=== PATIENT | female | born 1995 | race Caucasian/White ===

== ENCOUNTER 2016-11-02 11:57 | Day surgery (SDC) | payer OTHER ==
[~2016-11-02] VITALS: Ht 167.6 cm; Wt 77.1 kg
[2016-11-02] MEDS ORDERED: NITR100C37 PO (12:15)
[2016-11-02] MEDS ORDERED: FLOM5CAP PO (12:15)
[2016-11-02] MEDS ORDERED: PERCOCET PO (12:15)
[2016-11-02] MEDS ORDERED: KETOROLAC 30 MG/ML VIAL (J1885) IV ONE (13:00)
[2016-11-02] MEDS ORDERED: NS 1,000 ML IV ONE (13:00)
[2016-11-02] MEDS ORDERED: ONDANSETRON 4MG/2ML VIAL (J2405) IV ONE (13:00)
[2016-11-02 13:21] LABS: BASO % 0.7 % (0.0-1.0); EOS # 0.5 K/mm3 (0.0-0.50); EOS % 7.8 % (0.0-3.0); LARGE UNSTAINED CELL # 0.1 K/mm3 (0.0-0.4); LARGE UNSTAINED CELL % 1.2 % (0.0-4.0); LYMPH # 1.4 K/mm3 (1.5-6.5); LYMPH % 19.1 % (24.0-44.0); MEAN CORPUSCULAR HEMOGLOBIN 28.8 pg (27.0-33.0); MEAN CORPUSCULAR HGB CONC 33.8 g/dl (32.0-36.5); MEAN CORPUSCULAR VOLUME 85.1 fl (80.0-96.0); MONO # 0.4 K/mm3 (0.0-0.8); MONO % 5.7 % (0.0-5.0); NEUTROPHILS # 4.4 K/mm3 (1.8-7.7); NEUTROPHILS % 65.5 % (36.0-66.0); PLATELET COUNT, AUTOMATED 288 k/mm3 (150-450); RED CELL DISTRIBUTION WIDTH 12.9 % (11.5-14.5); WHITE BLOOD COUNT 6.7 K/mm3 (4.0-10.0)
--- NOTE | 2016-11-02 13:52 | REP ---
Clinical: Left flank pain. Findings: Mild left-sided obstructive uropathy with edematous enlargement of the kidney and hydroureteronephrosis secondary to a 7 mm obstructing calculus at the ureterovesicle junction (images 126 - 127). The urinary tract system is otherwise unremarkable. Liver, spleen, pancreas, and bilateral adrenal glands are normal. The patient is status post cholecystectomy. The enteric system is unremarkable. Pelvis demonstrates collapsed bladder and age-appropriate uterus/adnexa. No free air. No free fluid. No obvious adenopathy. Abdominal aorta without aneurysm. Surrounding musculoskeletal structures are intact. Lung bases are clear. Impression: 1. Mild left-sided obstructive uropathy with a 7 mm calculus at the ureterovesicle junction. Otherwise normal urinary tract system. Signed by Richard Cormier MD 11/02/2016 01:43 P
[2016-11-02 14:14] LABS: ANION GAP 5 MEQ/L (8-16); BLOOD UREA NITROGEN 10 MG/DL (7-18); CALCIUM LEVEL 8.3 MG/DL (8.5-10.1); CARBON DIOXIDE LEVEL 29 MEQ/L (21-32); CHLORIDE LEVEL 108 MEQ/L (98-107); GLOMERULAR FILTRATION RATE > 60.0 (>60); GLUCOSE, FASTING 91 MG/DL (70-105); POTASSIUM SERUM 3.7 MEQ/L (3.5-5.1); SODIUM LEVEL 142 MEQ/L (136-145)
[2016-11-02] MEDS ORDERED: NITRO10CA PO (15:00)
[2016-11-02] MEDS ORDERED: MACR100C42 PO (15:13)
[2016-11-02] MEDS ORDERED: CONRAY-60 60% 50ML VIAL (Q9961) As Ordered ONE (15:48)
[2016-11-02] MEDS ORDERED: PROPOFOL 200 MG/20 ML VIAL As Ordered ONE (15:58)
[2016-11-02] MEDS ORDERED: MIDAZOLAM INJ 2 MG/2 ML VIAL (J2250) As Ordered ONE (15:58)
[2016-11-02] MEDS ORDERED: fentaNYL 100 MCG/2 ML INJECTION (J3010) As Ordered ONE (15:58)
[2016-11-02] MEDS ORDERED: cefTRIAXone SOD 1 GM VIAL (J0696) As Ordered ONE (16:16)
[2016-11-02] MEDS ORDERED: cefTRIAXone SOD 1 GM in D5W MINI-BAG PLUS 50 ML IV ONE (16:30)
[2016-11-02] MEDS ORDERED: dexameTHASONE 4 MG/ML 1ML VIAL (J1100) As Ordered ONE ×2 (16:58→16:59)
[2016-11-02] MEDS ORDERED: METOCLOPRAMIDE INJ 10MG/2ML VIAL (J2765) As Ordered ONE (17:00)
[2016-11-02] MEDS ORDERED: ONDANSETRON 4MG/2ML VIAL (J2405) As Ordered ONE (17:00)
[2016-11-02] MEDS ORDERED: BACT800T5 PO (17:36)
[2016-11-02] MEDS ORDERED: OXYC1TAB23 PO (17:36)
[2016-11-02] MEDS ORDERED: PERCOCET 5MG/325MG TAB PO PRN (17:45)
[2016-11-02] MEDS ORDERED: LR 1,000 ML IV SCH ×2 (17:45→18:30)
[2016-11-02] MEDS ORDERED: ONDANSETRON 4MG/2ML VIAL (J2405) IV PRN (17:45)
[2016-11-02] MEDS ORDERED: fentaNYL 100 MCG/2 ML INJECTION (J3010) IV PRN (17:45)
[2016-11-02 18:25] VITALS: BP 122/70
[2016-11-02 18:55] VITALS: BP 121/66
--- NOTE | 2016-11-02 19:00 | REP ---
Clinical: Left-sided obstructive uropathy. Technique: Intraoperative fluoroscopic images. Findings: Two intraoperative fluoroscopic images demonstrate the patient to be status post left ureteral stent placement. Total fluoroscopic time 6 seconds. Impression: Status post left ureteral stent placement. Signed by Richard Cormier MD 11/02/2016 06:51 P
[2016-11-02 19:25] VITALS: BP 134/70
--- NOTE | 2016-11-02 19:44 | CR ---
DATE OF CONSULTATION: 11/02/2016 REASON FOR CONSULTATION: Left-sided hydronephrosis with left ureteral stone. HISTORY OF PRESENT ILLNESS: Patient is a 21-year-old female with history of nephrolithiasis who presents with left flank pain and nausea. She had presented one week prior to an outside hospital with similar symptoms and was discharged home on Flomax and pain medicine. She now presents again with left flank pain and nausea. ALLERGIES: PERTUSSIS VACCINE. MEDICATIONS: No chronic medications. Recently prescribed Flomax and narcotic pain medicine at an outside hospital. PAST MEDICAL HISTORY: None. PAST SURGICAL HISTORY: Cholecystectomy. FAMILY HISTORY: Significant for nephrolithiasis in the patients' father. SOCIAL HISTORY: Patient is and lives with her . PHYSICAL EXAMINATION: Afebrile. Patient is not in acute distress. Lungs are clear. Abdomen is soft, non-tender, non-distended. Extremities warm and well perfused. There is mild left CVA tenderness. LABORATORY DATA: WBC 6.7, hematocrit 38.0, creatinine 0.8. Urinalysis is negative for bacteria. There are white blood cells and red blood cells consistent with the patient's left ureteral stone. Urine test in the emergency room is negative and is documented as such under UCG results. IMAGING: CAT scan was performed and shows a left distal ureteral stone measuring 7 mm in size with left hydroureteronephrosis. ASSESSMENT AND PLAN: Patient is a 21-year-old female with a history of nephrolithiasis and multiple presentations with left flank pain and nausea. She now presents again to the emergency room. CT scan is consistent with left distal ureteral stone. PLAN: Given that this is the patient's second presentation for this ureteral stone she wishes to have intervention in order to provide pain relief. We discussed that we would attempt cystoscopy with left ureteroscopy, laser lithotripsy and left ureteral stent placement. However, if there are signs of an infection intraoperatively or if the left orifice is very narrow, then I will place a left ureteral stent and she would need an interval left ureteroscopy for definitive cell management. Either way patient will need to have her stent removed. She is aware that this thing cannot be left in for longer than 3 months due to complications associated with encrustation. JUSTO
--- NOTE | 2016-11-02 20:57 | RO ---
DATE OF PROCEDURE: 11/02/2016 PREPROCEDURE DIAGNOSIS: Left distal ureteral stone. POSTPROCEDURE DIAGNOSIS: Impacted left distal ureteral stone. OPERATION PERFORMED: Cystoscopy, left ureteroscopy, laser lithotripsy, left ureteral stent placement. SURGEON: Fede Brasher MD ANESTHESIOLOGIST: Dr. Vasquez OPERATIVE FINDINGS: 1. Squamous metaplasia on the trigone. No other abnormalities in the bladder or urethra. 2. Left distal ureteral stone was impacted in the distal ureter. 3. Distal ureteral stone was broken up with a laser fiber and the pieces were basketed out. ESTIMATED BLOOD LOSS: Minimal. URINE OUTPUT: Not measurable. COMPLICATIONS: None. DISPOSITION: Postanesthesia care unit. DRAINS: None. SPECIMEN: Left ureteral stone IMPLANTS: 6 x 22-32 left ureteral stent INDICATIONS FOR THE PROCEDURE: The patient is a 21-year-old woman who presented to the emergency room with left flank pain and nausea. She had a CT scan performed, which demonstrated a distal left ureteral stone. Of note, she presented with similar symptoms several weeks prior to an outside hospital emergency room. Since this was her second presentation, she wished to undergo a procedure to remove the stone. She understood the risks and benefits of the procedure and wished to proceed. DESCRIPTION OF PROCEDURE: The patient was taken to the operating room after informed consent and all necessary paperwork were confirmed. She was placed in supine position. She was induced by the anesthesia team after a formal time-out was performed. The patient was then placed in dorsal lithotomy position, prepped and draped in the usual sterile fashion. A 21-Barbadian, 30-degree lens cystoscope was inserted atraumatically into the bladder. The entire bladder was examined. Both ureteral orifices were identified in orthotopic position. The left ureteral orifice had a slight bulge from the ureteral stone. There was also squamous metaplasia noted at the trigone. There were no other mucosal abnormalities noted in the bladder The left ureteral orifice was cannulated with a 0.035 Sensor wire, which was advanced into the left renal collecting system under fluoroscopic guidance. The cystoscope was then removed and a short semi-rigid ureteroscope was used to advance the scope into the distal left ureter. The stone was approached. It was noted to be impacted in the ureter. A 200 micron laser fiber was used to break up the stone into several small fragments. These fragments were basketed out using a 1.9 Barbadian, 0 tip bard basket. Some of the fragments were sent off the table as a specimen. At this point, the #21-Barbadian cystoscope was back loaded onto the wire using the stem pusher. The stem pusher was then removed. A 6 x 22-32 expandable Cook stent was then advanced into the kidney under fluoroscopic and cystoscopic guidance. A curl was seen in the kidney fluoroscopically, and a curl was seen in the bladder, both fluoroscopically and cystoscopically. The bladder was then drained. The patient tolerated the procedure well. She was taken to the recovery room without incident. PLAN: The patient should have the stent removed in 2 weeks given that the stone was impacted. The patient is aware that the stent cannot stay in for longer than 3 months because it can become encrusted with stones. JUSTO
== END 2016-11-02 19:55 | disposition home or self-care (01) ==
LOC: M ED 12:49 → M SDC 15:35 → M PED 18:15 → M SDC 19:55
PROVIDERS: ATTEND Urology
DX: N20.1 Calculus of ureter (principal); Z88.7 Allergy status to serum and vaccine
CPT/HCPCS: 52356; 74176; 74420; 80048; 81001; 81025; 82360; 85025; 87086; 88300; 99284; C1726; C2617; J0696; J1100; J1885; J2250; J2405; J2765; J3010; Q9961

== ENCOUNTER 2017-10-22 20:28 | Emergency (ER) | payer OTHER ==
[2017-10-22] MEDS: ONDANSETRON 4MG/2ML VIAL (J2405) IV (21:45)
[2017-10-22] MEDS: NS 1,000 ML IV (22:01)
[2017-10-22] MEDS: KETOROLAC 30 MG/ML VIAL (J1885) IV (22:02)
[2017-10-22 22:13] LABS: BASO # 0.1 10^3/uL (0.0-0.2); BASO % 0.5 % (0.0-1.0); EOS # 0.1 10^3/uL (0.0-0.50); EOS % 0.8 % (0.0-3.0); HEMATOCRIT 39.8 % (36.0-47.0); HEMOGLOBIN 13.1 g/dl (12.0-15.5); IMMATURE GRANULOCYTE % 0.3 % (0-3.0); LYMPH % 26.9 % (24.0-44.0); MEAN CORPUSCULAR HEMOGLOBIN 28.1 pg (27.0-33.0); MEAN CORPUSCULAR HGB CONC 32.9 g/dl (32.0-36.5); MEAN CORPUSCULAR VOLUME 85.4 fl (80.0-96.0); MONO # 1.2 10^3/uL (0.0-0.8); MONO % 8.3 % (0.0-5.0); NEUTROPHILS # 9.3 10^3/uL (1.8-7.7); NEUTROPHILS % 63.2 % (36.0-66.0); PLATELET COUNT, AUTOMATED 320 10^3/uL (150-450); RED BLOOD COUNT 4.66 10^6/uL (4.00-5.40); RED CELL DISTRIBUTION WIDTH 12.8 % (11.5-14.5); WHITE BLOOD COUNT 14.8 10^3/uL (4.0-10.0)
[2017-10-22] MEDS: MORPHINE 4 MG/ML 1ML VIAL/SYRINGE (J2270) IV (22:21)
[2017-10-22 22:22] LABS: KETONE, URINE AUTO RFX NEGATIVE (NEGATIVE); LEUKOCYTE ESTERASE UR AUTO RFX NEGATIVE (NEGATIVE); MUCUS, URINE RFX SMALL (NEGATIVE); NITRITE, URINE AUTO RFX NEGATIVE (NEGATIVE); RBC, URINE AUTO RFX 0 /HPF (0-3); SPECIFIC GRAVITY UR AUTO RFX 1.005 (1.002-1.035); SQUAM EPITHELIAL CELL UR AURFX 0 /HPF (0-6); WBC, URINE AUTO RFX 0 /HPF (0-3)
[2017-10-22 22:36] LABS: ANION GAP 6 MEQ/L (8-16); BLOOD UREA NITROGEN 9 MG/DL (7-18); C REACTIVE PROTEIN QUANTITATIV < 0.30 MG/DL (0.00-0.30); CALCIUM LEVEL 9.3 MG/DL (8.5-10.1); CARBON DIOXIDE LEVEL 27 MEQ/L (21-32); CHLORIDE LEVEL 109 MEQ/L (98-107); GLOMERULAR FILTRATION RATE > 60.0 (>60); GLUCOSE, FASTING 100 MG/DL (70-100); SODIUM LEVEL 142 MEQ/L (136-145)
== END 2017-10-22 23:11 | disposition home or self-care (01) ==
LOC: M ED 20:28
DX: R10.9 Unspecified abdominal pain (principal); R11.2 Nausea with vomiting, unspecified; Z87.442 Personal history of urinary calculi; Z88.7 Allergy status to serum and vaccine
CPT/HCPCS: J2270

== ENCOUNTER 2018-01-07 22:56 | Emergency (ER) | payer OTHER ==
[2018-01-07 23:34] LABS: KETONE, URINE AUTO RFX NEGATIVE (NEGATIVE); LEUKOCYTE ESTERASE UR AUTO RFX NEGATIVE (NEGATIVE); NITRITE, URINE AUTO RFX NEGATIVE (NEGATIVE); RBC, URINE AUTO RFX 1 /HPF (0-3); SPECIFIC GRAVITY UR AUTO RFX 1.002 (1.002-1.035); SQUAM EPITHELIAL CELL UR AURFX 0 /HPF (0-6); WBC, URINE AUTO RFX 0 /HPF (0-3)
[2018-01-07 23:39] LABS: BASO % 0.4 % (0.0-1.0); EOS # 0.2 10^3/uL (0.0-0.50); EOS % 1.4 % (0.0-3.0); HEMATOCRIT 37.2 % (36.0-47.0); HEMOGLOBIN 12.4 g/dl (12.0-15.5); IMMATURE GRANULOCYTE % 0.3 % (0-3.0); LYMPH # 3.2 10^3/uL (1.5-6.5); LYMPH % 29.6 % (24.0-44.0); MEAN CORPUSCULAR HEMOGLOBIN 28.4 pg (27.0-33.0); MEAN CORPUSCULAR HGB CONC 33.3 g/dl (32.0-36.5); MEAN CORPUSCULAR VOLUME 85.3 fl (80.0-96.0); MONO # 0.8 10^3/uL (0.0-0.8); MONO % 7.4 % (0.0-5.0); NEUTROPHILS # 6.7 10^3/uL (1.8-7.7); NEUTROPHILS % 60.9 % (36.0-66.0); PLATELET COUNT, AUTOMATED 317 10^3/uL (150-450); RED BLOOD COUNT 4.36 10^6/uL (4.00-5.40); RED CELL DISTRIBUTION WIDTH 12.6 % (11.5-14.5); WHITE BLOOD COUNT 10.9 10^3/uL (4.0-10.0)
[2018-01-07 23:46] LABS: CONTROL LINE UCG INT CTR LINE PRESENT; URINE PREG TEST NEGATIVE (NEGATIVE)
[2018-01-08 00:01] LABS: ALBUMIN 3.9 GM/DL (3.2-5.2); ALBUMIN/GLOBULIN RATIO 1.11 (1.00-1.93); ALKALINE PHOSPHATASE 137 U/L (45-117); ALT/SGPT 14 U/L (12-78); ANION GAP 8 MEQ/L (8-16); AST/SGOT 22 U/L (7-37); BILIRUBIN,DIRECT 0.1 MG/DL (0.0-0.2); BILIRUBIN,TOTAL 0.3 MG/DL (0.2-1.0); BLOOD UREA NITROGEN 9 MG/DL (7-18); CALCIUM LEVEL 9.4 MG/DL (8.5-10.1); CARBON DIOXIDE LEVEL 25 MEQ/L (21-32); CHLORIDE LEVEL 107 MEQ/L (98-107); CREATININE FOR GFR 1.25 MG/DL (0.55-1.30); GLOMERULAR FILTRATION RATE 57.1 (>60); GLUCOSE, FASTING 101 MG/DL (70-100); LIPASE 75 U/L (73-393); POTASSIUM SERUM 4.1 MEQ/L (3.5-5.1); SODIUM LEVEL 140 MEQ/L (136-145); TOTAL PROTEIN 7.4 GM/DL (6.4-8.2)
[2018-01-08] MEDS: KETOROLAC 30 MG/ML VIAL (J1885) IV (00:29)
[2018-01-08] MEDS: NS 1,000 ML IV (00:29)
== END 2018-01-08 01:43 | disposition home or self-care (01) ==
LOC: M ED 01-08 01:43
DX: N83.01 Follicular cyst of right ovary (principal); R11.0 Nausea; Z87.442 Personal history of urinary calculi; Z88.7 Allergy status to serum and vaccine
CPT/HCPCS: J1885

== ENCOUNTER 2018-08-18 17:27 | Inpatient (IN) | payer OTHER ==
[~2018-08-18] VITALS: Ht 160 cm; Wt 76.3 kg
[~2018-08-18 17:27] MED LIST: BACT800T5 PO; FLOM0.4C39 PO; KETO10TAB PO; MACR100C42 PO; NITR-67 PO; NITR100C39 PO; OXYC1TAB23 PO; PERCOCET PO; ZOFR4TAB14 PO
[2018-08-18] MEDS ORDERED: metoprolol PO (17:42)
[2018-08-18] MEDS ORDERED: SERT-138 PO (17:42)
[2018-08-18] MEDS ORDERED: ONDANSETRON 4MG/2ML VIAL (J2405) IV ONE (19:00)
[2018-08-18] MEDS ORDERED: MORPHINE 4 MG/ML 1ML VIAL/SYRINGE (J2270) IV ONE ×2 (19:00→20:30)
[2018-08-18] MEDS ORDERED: NS 1,000 ML IV ONE (19:00)
[2018-08-18 19:10] LABS: BASO # 0.1 10^3/uL (0.0-0.2); BASO % 0.3 % (0.0-1.0); EOS % 0.2 % (0.0-3.0); HEMATOCRIT 37.9 % (36.0-47.0); HEMOGLOBIN 12.3 g/dl (12.0-15.5); LYMPH # 1.2 10^3/uL (1.5-6.5); LYMPH % 6.1 % (24.0-44.0); MEAN CORPUSCULAR HEMOGLOBIN 28.5 pg (27.0-33.0); MEAN CORPUSCULAR HGB CONC 32.5 g/dl (32.0-36.5); MEAN CORPUSCULAR VOLUME 87.7 fl (80.0-96.0); MONO # 1.1 10^3/uL (0.0-0.8); MONO % 5.7 % (0.0-5.0); NEUTROPHILS % 87.3 % (36.0-66.0); PLATELET COUNT, AUTOMATED 267 10^3/uL (150-450); RED BLOOD COUNT 4.32 10^6/uL (4.00-5.40); WHITE BLOOD COUNT 19.5 10^3/uL (4.0-10.0)
[2018-08-18 19:52] LABS: ALBUMIN 3.9 GM/DL (3.2-5.2); ALT/SGPT 38 U/L (12-78); AMYLASE 455 U/L (25-115); BILIRUBIN,TOTAL 0.8 MG/DL (0.2-1.0); BLOOD UREA NITROGEN 9 MG/DL (7-18); CALCIUM LEVEL 8.6 MG/DL (8.5-10.1); CARBON DIOXIDE LEVEL 27 MEQ/L (21-32); CHLORIDE LEVEL 107 MEQ/L (98-107); CREATININE FOR GFR 0.65 MG/DL (0.55-1.30); GLOMERULAR FILTRATION RATE > 60.0 (>60); GLUCOSE, FASTING 97 MG/DL (70-100); LIPASE 9070 U/L (73-393); POTASSIUM SERUM 4.2 MEQ/L (3.5-5.1); SODIUM LEVEL 139 MEQ/L (136-145); TOTAL PROTEIN 6.9 GM/DL (6.4-8.2)
--- NOTE | 2018-08-18 21:01 | REPVR ---
EXAM: US Abdomen Limited, Right Upper Quadrant EXAM DATE/TIME: 08/18/2018 8:01 PM CLINICAL HISTORY: 23 years old, female; Pain; Abdominal pain; Epigastric; Prior surgery; Surgery date: 6+ months; Surgery type: S/P bridgett; Additional info: Ruq pain post bridgett TECHNIQUE: Real-time ultrasound of the abdomen with image documentation. Examination was focused on the right upper quadrant. COMPARISON: RENAL US 01/08/2018 12:46 AM FINDINGS: Liver: The liver is heterogeneous and generally increased in echotexture Gallbladder: The gallbladder is not seen is a separate structure. Common bile duct: The common bile duct measures 7 mm. Pancreas: The pancreas is not seen due to bowel gas. Right kidney: The right kidney measures 11 x 4.7 x 5.3 cm. Portal venous: There is normal both in direction the main portal vein. IMPRESSION: Heterogeneous echogenic liver suggests underlying infiltrative process such as hepatic steatosis. 2. Extrahepatic Common bile duct is mildly dilated. This could be result of previous cholecystectomy. Distal biliary stricture, stone or neoplasm are other considerations. Electronically signed by: Mamie Saucedo On 08/18/2018 21:01:05 PM
[2018-08-18 21:26] LABS: HCG, SERUM QUALITATIVE NEGATIVE (NEGATIVE)
[2018-08-18] MEDS ORDERED: MORPHINE 2 MG/ML 1ML SYRINGE (J2270) IV ONE (23:00)
--- NOTE | 2018-08-18 23:40 | REPVR ---
EXAM: MR Abdomen Without Contrast; Liver EXAM DATE/TIME: 08/18/2018 10:33 PM CLINICAL HISTORY: 23 years old, female; Abnormal findings; Abnormal radiologic finding of the abdomen; Radiologic exam and body structure: Abd US; Additional info: R/O biliary obstruction TECHNIQUE: MR Abdomen without contrast. Exam focused on the liver. COMPARISON: RENAL US 01/08/2018 12:46 AM FINDINGS: Liver: Unremarkable liver. No masses. Gallbladder and bile ducts: The patient is status post cholecystectomy with surgical clips in the gallbladder fossa. The common bile duct measures approximately 7 mm in midline. This may be mild ectasia in a patient who is post cholecystectomy. There is no evidence of filling defect within the common duct and no evidence of obstruction. Pancreas: The pancreas appears normal in size. The pancreatic duct appears within the range of normal. Spleen: Normal spleen. Kidneys and ureters: Normal kidneys. Stomach and bowel: Normal stomach. Normal appearing small bowel. Normal-appearing colon. IMPRESSION: 1. The patient is status post cholecystectomy. 2. The common bile duct is normal in size for a postcholecystectomy patient with no evidence of filling defect or obstruction. Electronically signed by: Eris Wilkins On 08/18/2018 23:40:45 PM
[2018-08-19] MEDS ORDERED: METO1TAB87 PO (00:04)
[2018-08-19] MEDS ORDERED: MULTCHW14 PO (00:04)
[2018-08-19] MEDS ORDERED: SERT-138 PO (00:04)
[2018-08-19] MEDS ORDERED: ONDA4TAB6 PO (00:04)
[2018-08-19] MEDS ORDERED: PATIENT COMMENT (00:07)
[2018-08-19] MEDS ORDERED: ONDANSETRON 4MG/2ML VIAL (J2405) IV PRN (00:15)
[2018-08-19] MEDS ORDERED: MORPHINE 4 MG/ML 1ML VIAL/SYRINGE (J2270) IV PRN (00:15)
[2018-08-19] MEDS ORDERED: NS 2,000 ML IV ONE (00:15)
[2018-08-19] MEDS: METOPROLOL TART 12.5 MG PER 1/2 TAB PO SCH ×3 (01:37→20:23)
--- NOTE | 2018-08-19 02:01 | HPE ---
DATE OF ADMISSION: 08/18/2018 CHIEF COMPLAINT: Abdominal pain radiating to the back, multiple episodes of nausea and vomiting. HISTORY OF PRESENT ILLNESS: The patient is a 23-year-old with a significant past medical history of hypertension, anxiety and depression who presents to the emergency room with a several hour history of epigastric abdominal pain radiating to the back associated with multiple episodes of nonbloody, nonbilious vomiting. Laboratories in the emergency room show a lipase consistent with pancreatitis. The patient denies any history of alcohol abuse. Magnetic resonance cholangiopancreatography (MRCP) was completed which showed no gallstones. She denies any cough, chest pain, shortness of breath, fevers, chills, urinary symptoms, constipation or diarrhea. PAST MEDICAL HISTORY: See history of the present illness (HPI). PAST SURGICAL HISTORY: She has had: 1. Cholecystectomy. 2. Removal of kidney stones. HOME MEDICATIONS: Include: - Zoloft - for which she cannot remember the dose - metoprolol - for which she cannot remember the dose SOCIAL HISTORY: She denies tobacco, alcohol or illicit drug use. FAMILY HISTORY: Family history is noncontributory. REVIEW OF SYSTEMS: A 12-point review of systems was completed, all of which were negative except those listed in the history of the present illness. VITAL SIGNS ON ADMISSION: Temperature 98, pulse 89, respirations 20, blood pressure 150/65, saturating at 100% on room air. PHYSICAL EXAMINATION: General: She is well nourished, in no apparent distress. Head is normocephalic, atraumatic. Eyes: Extraocular movements are intact. Pupils equal, round, reactive to light. Neck is supple. No jugular venous pressure (JVP). Lungs: Clear to auscultation bilaterally. No crackles, wheezes, rales or rhonchi. Cardiovascular: Regular rate and rhythm. Normal S1, S2. No murmurs, gallops, or rubs. Abdomen: Soft, nontender, nondistended, positive bowel sounds. No rebound or guarding. Extremities: No pitting edema or calf tenderness. Skin: Intact. No rashes, lesions or breakdown. Neurological: Alert and oriented (A and O) times three. No focal deficits. LABORATORIES AND IMAGING COMPLETED IN THE EMERGENCY ROOM: White count of 19, hemoglobin and hematocrit (H and H) of 12/37, platelet count of 267. Chemistries: BUN and creatinine 9/0.65, AST of 66, alkaline phosphatase of 134, amylase of 455 and lipase of 9000. Right upper quadrant sonogram shows heterogenous echogenic liver suggests underlying infiltrative process such as hepatic steatosis. Common bile duct (CBD) is mildly dilated. A magnetic resonance cholangiopancreatography (MRCP) was subsequently completed which showed status post cholecystectomy. Common bile duct (CBD) is normal in size for a post cholecystectomy patient. ASSESSMENT AND PLAN: 1. Pancreatitis. Appears to be idiopathic pancreatitis. Calcium is normal. No history of alcohol abuse. No gallstones on imaging. Will send a lipid panel to assess for hypertriglyceridemia. For now, we will keep nothing by mouth. Aggressive fluid hydration. Will bolus 3 liters. Start lactated Ringer 250 mL/hour. Zofran as needed nausea or vomiting. Morphine as needed pain. Advance diet as tolerated. 2. Hypertension. The dose of the metoprolol is unclear. We will start her on the lowest possible dose 12.5 twice a day. Please clarify patient's dose in the a.m. and increase to the appropriate dose. 3. For history of depression and anxiety continue her Zoloft. 4. Supportive deep vein thrombosis (DVT) prophylaxis: Heparin subcutaneous. 5. Gastrointestinal (GI) prophylaxis: It is not indicated. 6. Diet: Nothing by mouth. Advance as tolerated.
[2018-08-19 03:00] VITALS: BP 127/79
[2018-08-19] MEDS: MORPHINE 4 MG/ML 1ML VIAL/SYRINGE (J2270) IV PRN ×2 (04:07→10:17)
[2018-08-19] MEDS ORDERED: KETOROLAC 30 MG/ML VIAL (J1885) IV ONE ×2 (04:30→22:30)
[2018-08-19] MEDS: LR 1,000 ML IV SCH ×5 (05:10→22:13)
[2018-08-19 08:00] VITALS: BP 129/59
[2018-08-19] MEDS: SERTRALINE 100 MG TAB PO SCH (09:59)
[2018-08-19] MEDS: ENOXAPARIN 40 MG/0.4 ML SYRINGE (J1650) SC SCH (09:59)
[2018-08-19] MEDS ORDERED: KETOROLAC 30 MG/ML VIAL (J1885) IV PRN (12:45)
[2018-08-19 13:11] LABS: BASO % 0.3 % (0.0-1.0); EOS # 0.2 10^3/uL (0.0-0.50); EOS % 2.1 % (0.0-3.0); HEMATOCRIT 33.5 % (36.0-47.0); HEMOGLOBIN 10.7 g/dl (12.0-15.5); LYMPH # 2.9 10^3/uL (1.5-6.5); LYMPH % 40.4 % (24.0-44.0); MEAN CORPUSCULAR HEMOGLOBIN 28.5 pg (27.0-33.0); MEAN CORPUSCULAR HGB CONC 31.9 g/dl (32.0-36.5); MEAN CORPUSCULAR VOLUME 89.1 fl (80.0-96.0); MONO # 0.6 10^3/uL (0.0-0.8); MONO % 8.1 % (0.0-5.0); NEUTROPHILS # 3.5 10^3/uL (1.8-7.7); PLATELET COUNT, AUTOMATED 213 10^3/uL (150-450); RED BLOOD COUNT 3.76 10^6/uL (4.00-5.40); WHITE BLOOD COUNT 7.1 10^3/uL (4.0-10.0)
[2018-08-19 13:56] LABS: BLOOD UREA NITROGEN 6 MG/DL (7-18); CALCIUM LEVEL 8.3 MG/DL (8.5-10.1); CARBON DIOXIDE LEVEL 26 MEQ/L (21-32); CHLORIDE LEVEL 111 MEQ/L (98-107); CREATININE FOR GFR 0.64 MG/DL (0.55-1.30); GLOMERULAR FILTRATION RATE > 60.0 (>60); GLUCOSE, FASTING 84 MG/DL (70-100); LIPASE 1792 U/L (73-393); POTASSIUM SERUM 3.6 MEQ/L (3.5-5.1); SODIUM LEVEL 142 MEQ/L (136-145)
[2018-08-19 16:00] VITALS: BP 133/74
[2018-08-19 20:00] VITALS: BP 127/69
[2018-08-20] VITALS: BP 120/69
[2018-08-20] MEDS: LR 1,000 ML IV SCH (04:04)
[2018-08-20 07:22] LABS: HEMATOCRIT 31.2 % (36.0-47.0); HEMOGLOBIN 10.2 g/dl (12.0-15.5); MEAN CORPUSCULAR HEMOGLOBIN 29.1 pg (27.0-33.0); MEAN CORPUSCULAR HGB CONC 32.7 g/dl (32.0-36.5); MEAN CORPUSCULAR VOLUME 88.9 fl (80.0-96.0); PLATELET COUNT, AUTOMATED 208 10^3/uL (150-450); RED BLOOD COUNT 3.51 10^6/uL (4.00-5.40); WHITE BLOOD COUNT 7.1 10^3/uL (4.0-10.0)
[2018-08-20 07:54] LABS: BLOOD UREA NITROGEN 3 MG/DL (7-18); CALCIUM LEVEL 8.3 MG/DL (8.5-10.1); CARBON DIOXIDE LEVEL 27 MEQ/L (21-32); CHLORIDE LEVEL 110 MEQ/L (98-107); CHOLESTEROL LEVEL 132 MG/DL (<200); CHOLESTEROL RISK RATIO 2.357 (<5); CREATININE FOR GFR 0.57 MG/DL (0.55-1.30); GLOMERULAR FILTRATION RATE > 60.0 (>60); GLUCOSE, FASTING 77 MG/DL (70-100); HDL CHOLESTEROL 56 MG/DL (>40); LDL CHOLESTEROL 67 MG/DL (<100); NON-HDL-C 76 MG/DL; SODIUM LEVEL 142 MEQ/L (136-145); TRIGLYCERIDES LEVEL 44 MG/DL (<150)
[2018-08-20 08:00] VITALS: BP 133/67
[2018-08-20 09:00] VITALS: BP 133/67
[2018-08-20] MEDS: SERTRALINE 100 MG TAB PO SCH (09:00)
[2018-08-20] MEDS: METOPROLOL TART 12.5 MG PER 1/2 TAB PO SCH (09:00)
[2018-08-20] MEDS: ENOXAPARIN 40 MG/0.4 ML SYRINGE (J1650) SC SCH (09:00)
[2018-08-20] MEDS ORDERED: FAMO20TA PO (11:14)
--- NOTE | 2018-08-20 17:48 | DS.PDOC ---
Discharge Summary General Date of Admission Aug 19, 2018 at 00:07 Date of Discharge 08/20/18 Attending Physician: ALYSSA DE LEÓN MD Discharge Summary PROCEDURES PERFORMED DURING STAY: None ADMITTING DIAGNOSES: Acute pancreatitis. DISCHARGE DIAGNOSES: Pancreatitis vs Acute gastritis or Duodenitis COMPLICATIONS/CHIEF COMPLAINT: Pancreatitis, Acute. HISTORY OF PRESENT ILLNESS: See history and physical HOSPITAL COURSE: The patient is a 23-year-old with a significant past medical history of hypertension, anxiety and depression who presents to the emergency room with a several hour history of epigastric abdominal pain radiating to the back associated with multiple episodes of nonbloody, nonbilious vomiting. Laboratories in the emergency room showed a lipase consistent with pancreatitis. The patient denies any history of alcohol abuse. Magnetic resonance cholangiopancreatography (MRCP) was completed which showed no gallstones or any pancreatic inflammation Pancreatitis Vs duodenitis/ gastritis MRCP of the bdomen in negative. did not show any pancreatis inflammation could have been a transient spasm of the pancreatic duct causing the symptoms and signs Vs could be gastritis or duodenitis which can also elevated the lipase. patient symptoms improved in less than 24 hours this makes me think that this was gastritis or duodenitis rather than pancreatitis which usually does not resolve so fast. Hypertension. continue metoprolol Depression and anxiety continue her Zoloft. History of kidney stones no isuues at present history of cholecystectomy in the past. DISCHARGE MEDICATIONS: Please see below. ALLERGIES: Please see below. PHYSICAL EXAMINATION ON DISCHARGE: VITAL SIGNS: Please see below. General: She is well nourished, in no apparent distress. Head is normocephalic, atraumatic. Eyes: Extraocular movements are intact. Pupils equal, round, reactive to light. Neck is supple. No jugular venous pressure (JVP). Lungs: Clear to auscultation bilaterally. No crackles, wheezes, rales or rhonchi. Cardiovascular: Regular rate and rhythm. Normal S1, S2. No murmurs, gallops, or rubs. Abdomen: Soft, nontender, nondistended, positive bowel sounds. No rebound or guarding. Extremities: No pitting edema or calf tenderness. Skin: Intact. No rashes, lesions or breakdown. Neurological: Alert and oriented (A and O) times three. No focal deficits. LABORATORY DATA: Please see below. PROGNOSIS: good ACTIVITY: As tolerated DIET:low fat low cholesterol DISPOSITION: 01 Home, Self-Care. DISCHARGE INSTRUCTIONS: Follow up with PMD in 2 weeks DISCHARGE CONDITION: Stable TIME SPENT ON DISCHARGE: Greater than 30 minutes. Vital Signs/I&Os Vital Signs Date Time Temp Pulse Resp B/P (MAP) Pulse Ox O2 Delivery O2 Flow Rate FiO2 08/20/18 09:00 79 133/67 08/20/18 08:00 99.5 18 98 08/19/18 03:22 Room Air I&O- Last 24 Hours up to 6 AM 08/20/18 06:00 Intake Total 4550 ml Output Total 2800 ml Balance 1750 ml Laboratory Data Labs 24H Laboratory Tests 2 08/20/18 06:59: Nucleated Red Blood Cells % (auto) 0.0, Anion Gap 5L, Glomerular Filtration Rate > 60.0, Calcium Level 8.3L, Triglycerides Level 44, LDL Cholesterol 67, Total Cholesterol 132, Non-HDL Cholesterol (LDL + VLDL) 76, Total HDL Cholesterol 56, Cholesterol/HDL Ratio 2.357 CBC/BMP Laboratory Tests 08/20/18 06:59 Red Blood Count 3.51 L, Mean Corpuscular Volume 88.9, Mean Corpuscular Hemoglobin 29.1, Mean Corpuscular Hemoglobin Concent 32.7, Red Cell Distribution Width 13.6 Microbiology Microbiology 08/19/18 Urine Culture - Final, Complete Discharge Medications Scheduled (Multivitamin Gummies Adul) 1 Chw Chw, 2 CHW PO DAILY, (Reported) Famotidine (Pepcid) 20 Mg Tab, 20 MG PO BID Metoprolol Tartrate (Metoprolol Tartrate) 25 Mg Tab, 25 MG PO BID, (Reported) Sertraline HCl (Sertraline HCl) 100 Mg Tab, 100 MG PO DAILY, (Reported) Scheduled PRN Ondansetron (Ondansetron Odt) 4 Mg Tab, 4 MG PO Q6H PRN for NAUSEA, (Reported) Allergies Coded Allergies: Low Fat Milk (Verified Allergy, Mild, 08/19/18) Lactose Intolerance (GI) (Verified Allergy, Unknown, 08/19/18) Pertussis Vaccine (Verified Allergy, Unknown, 11/02/16) ALYSSA DE LEÓN MD Aug 20, 2018 17:48
== END 2018-08-20 13:45 | disposition home or self-care (01) | DRG 440 ==
LOC: M ED 17:27 → M ED INP 08-19 00:07 → M PED 08-19 03:59
PROVIDERS: ADMIT Internal Medicine; ATTEND Internal Medicine Nephrology
DX: K85.00 Idiopathic acute pancreatitis without necrosis or infection (principal); K29.00 Acute gastritis without bleeding; I10 Essential (primary) hypertension; F32.9 Major depressive disorder, single episode, unspecified; F41.9 Anxiety disorder, unspecified; Z90.49 Acquired absence of other specified parts of digestive tract; Z87.442 Personal history of urinary calculi; Z79.899 Other long term (current) drug therapy

== ENCOUNTER 2018-08-23 09:26 | Emergency (ER) | payer OTHER ==
[~2018-08-23] VITALS: Ht 160 cm; Wt 72.7 kg
[~2018-08-23 09:26] MED LIST changes: +FAMO20TA PO; +METO1TAB87 PO; +MULTCHW14 PO; +ONDA4TAB6 PO; +PATIENT COMMENT; +SERT-138 PO; +metoprolol PO
[2018-08-23 09:27] VITALS: BP 127/70
[2018-08-23] MEDS ORDERED: NS 1,000 ML IV ONE (10:15)
[2018-08-23] MEDS ORDERED: ONDANSETRON 4MG/2ML VIAL (J2405) IV ONE (10:15)
[2018-08-23] MEDS ORDERED: KETOROLAC 30 MG/ML VIAL (J1885) IV ONE (10:15)
[2018-08-23 10:40] LABS: BASO # 0.1 10^3/uL (0.0-0.2); BASO % 0.8 % (0.0-1.0); EOS # 0.1 10^3/uL (0.0-0.50); EOS % 1.9 % (0.0-3.0); HEMATOCRIT 40.2 % (36.0-47.0); HEMOGLOBIN 13.1 g/dl (12.0-15.5); LYMPH # 1.7 10^3/uL (1.5-6.5); MEAN CORPUSCULAR HEMOGLOBIN 28.4 pg (27.0-33.0); MEAN CORPUSCULAR HGB CONC 32.6 g/dl (32.0-36.5); MONO # 0.5 10^3/uL (0.0-0.8); MONO % 8.4 % (0.0-5.0); NEUTROPHILS # 3.9 10^3/uL (1.8-7.7); NEUTROPHILS % 61.7 % (36.0-66.0); PLATELET COUNT, AUTOMATED 300 10^3/uL (150-450); RED BLOOD COUNT 4.62 10^6/uL (4.00-5.40); WHITE BLOOD COUNT 6.3 10^3/uL (4.0-10.0)
[2018-08-23 11:17] LABS: ALBUMIN 4.2 GM/DL (3.2-5.2); ALT/SGPT 66 U/L (12-78); BILIRUBIN,DIRECT 0.1 MG/DL (0.0-0.2); BILIRUBIN,TOTAL 0.4 MG/DL (0.2-1.0); BLOOD UREA NITROGEN 8 MG/DL (7-18); CARBON DIOXIDE LEVEL 26 MEQ/L (21-32); CHLORIDE LEVEL 110 MEQ/L (98-107); CREATININE FOR GFR 0.73 MG/DL (0.55-1.30); GLOMERULAR FILTRATION RATE > 60.0 (>60); GLUCOSE, FASTING 87 MG/DL (70-100); LIPASE 77 U/L (73-393); POTASSIUM SERUM 4.2 MEQ/L (3.5-5.1); SODIUM LEVEL 141 MEQ/L (136-145); TOTAL PROTEIN 7.7 GM/DL (6.4-8.2)
[2018-08-23] MEDS ORDERED: ISOVUE-370 76% 125ML VIAL (Q9967 PER ML) As Ordered ONE (11:54)
--- NOTE | 2018-08-23 12:40 | REP ---
CT ABDOMEN AND PELVIS WITH IV BUT WITHOUT ORAL CONTRAST: HISTORY: History of pancreatitis. Right upper quadrant and epigastric pain. COMPARISON CT STUDY: October 22, 2017. CT CONTRAST DOSE: 100 mL of intravenous Isovue 370. CT FINDINGS: Preliminary digital forest scientist radiograph demonstrates a normal bowel gas pattern. There are clips in right upper quadrant of the abdomen. The lung bases are clear on axial CT images. The liver and the spleen are normal size homogeneous in texture. Gallbladder surgically absent. No adrenal lesion is seen. Pancreas has normal morphologic features. No peripancreatic edema is seen. Common bile duct is normal post cholecystectomy measuring 6-7 mm. The kidneys enhance symmetrically and appear morphologically intact. No retroperitoneal mass or adenopathy is seen. Small and large intestinal bowel loops are normal. No ovarian or uterine abnormality is observed. The uterus is somewhat retroverted. Urinary bladder is unremarkable. No abdominal wall defect is seen. There is no evidence of free air or free fluid. There is moderate colonic stool. No obstructive lesion is seen. No acute bony abnormality is appreciated. IMPRESSION: Post cholecystectomy. Somewhat retroverted uterus. Moderate stool in the colon. Otherwise unremarkable CT study abdomen and pelvis. Normal appendix is seen in the right lower quadrant. Electronically Signed by Andres Atkinson MD 08/23/2018 07:45 P
[2018-08-23] MEDS ORDERED: ONDA4TAB6 PO (13:24)
== END 2018-08-23 14:21 | disposition home or self-care (01) ==
LOC: M ED 09:26
DX: R10.11 Right upper quadrant pain (principal); R11.2 Nausea with vomiting, unspecified; Z87.19 Personal history of other diseases of the digestive system; I10 Essential (primary) hypertension; N80.9 Endometriosis, unspecified; F41.9 Anxiety disorder, unspecified; Z87.442 Personal history of urinary calculi; Z91.011 Allergy to milk products; Z88.7 Allergy status to serum and vaccine; Z79.899 Other long term (current) drug therapy
CPT/HCPCS: 74177; 80048; 80076; 81001; 83690; 85025; 96374; 96375; 99283; J1885; J2405; Q9967

== ENCOUNTER 2019-04-19 06:53 | Emergency (ER) | payer OTHER ==
[~2019-04-19] VITALS: Ht 160 cm; Wt 74.6 kg
[2019-04-19] MEDS ORDERED: DULO1CAP5 PO (07:00)
[2019-04-19] MEDS ORDERED: TRAM50TA2 PO (07:00)
[2019-04-19] MEDS ORDERED: CLON0.5T8 PO (07:00)
[2019-04-19] MEDS ORDERED: ONDANSETRON 4MG/2ML VIAL (J2405) IV ONE (07:30)
[2019-04-19] MEDS ORDERED: NS 1,000 ML IV ONE (07:30)
[2019-04-19] MEDS ORDERED: MORPHINE 4 MG/ML 1ML VIAL/SYRINGE (J2270) IV ONE (07:30)
[2019-04-19 07:45] LABS: BASO # 0.1 10^3/uL (0.0-0.2); EOS # 0.3 10^3/uL (0.0-0.5); EOS % 5.3 % (0.0-3.0); HEMATOCRIT 39.6 % (36.0-47.0); LYMPH % 34.8 % (24.0-44.0); MEAN CORPUSCULAR HEMOGLOBIN 28.3 pg (27.0-33.0); MEAN CORPUSCULAR HGB CONC 32.8 g/dl (32.0-36.5); MEAN CORPUSCULAR VOLUME 86.1 fl (80.0-96.0); MONO # 0.5 10^3/uL (0.0-0.8); MONO % 8.6 % (0.0-5.0); NEUTROPHILS # 2.9 10^3/uL (1.5-8.5); NEUTROPHILS % 50.3 % (36.0-66.0); PLATELET COUNT, AUTOMATED 292 10^3/uL (150-450); WHITE BLOOD COUNT 5.8 10^3/uL (4.0-10.0)
[2019-04-19 08:15] LABS: ALBUMIN 3.8 GM/DL (3.2-5.2); ALT/SGPT 14 U/L (12-78); AMYLASE 28 U/L (25-115); BILIRUBIN,DIRECT 0.2 MG/DL (0.0-0.2); BILIRUBIN,TOTAL 0.8 MG/DL (0.2-1.0); BLOOD UREA NITROGEN 11 MG/DL (7-18); CALCIUM LEVEL 9.4 MG/DL (8.5-10.1); CARBON DIOXIDE LEVEL 29 MEQ/L (21-32); CHLORIDE LEVEL 107 MEQ/L (98-107); CREATININE FOR GFR 0.75 MG/DL (0.55-1.30); GLOMERULAR FILTRATION RATE > 60.0 (>60); GLUCOSE, FASTING 94 MG/DL (70-100); LIPASE 47 U/L (73-393); POTASSIUM SERUM 4.5 MEQ/L (3.5-5.1); SODIUM LEVEL 139 MEQ/L (136-145)
[2019-04-19] MEDS ORDERED: HYDROMORPHONE HCL 0.5 MG/ 0.5 ML SYRINGE (J1170 PER 1) IV PRN (08:15)
--- NOTE | 2019-04-19 08:29 | REP ---
Right upper quadrant sonography: History: Right upper quadrant and right flank pain. History pancreatitis. Comparison CT study August 23, 2018. Findings: Scanning through the right upper quadrant of the abdomen demonstrates normal size homogeneous liver. No focal liver lesion. The pancreas is unremarkable as visualized. Common bile duct is a 0.7 cm in diameter. The patient is post cholecystectomy. There is no evidence of ascites or right renal abnormality. The right kidney measures 11.1 x 5.2 x 3.5 cm. Impression: Negative right upper quadrant sonography post cholecystectomy. CBD normal 0.7 cm. Electronically Signed by Andres Atkinson MD 04/19/2019 08:20 A
[2019-04-19] MEDS ORDERED: KETOROLAC 30 MG/ML VIAL (J1885) IV ONE (08:30)
[2019-04-19] MEDS ORDERED: NORCO, ANEXSIA 5/325MG TABLET (HYDROcodone/ACETAMINOPHEN) PO ONE (09:45)
[2019-04-19 09:59] LABS: HCG, SERUM QUALITATIVE NEGATIVE (NEGATIVE)
[2019-04-19 10:10] VITALS: BP 136/87
[2019-04-19] MEDS ORDERED: SIME180C PO (10:56)
[2019-04-19] MEDS ORDERED: DICY10CA13 PO (10:56)
[2019-04-19] MEDS ORDERED: ONDA4TAB6 PO (10:56)
--- NOTE | 2019-04-19 11:29 | REP ---
Abdomen series: Three views. History: Abdomen and chest pain. Vomiting. Findings: Upright chest radiograph is normal. There is no evidence of infiltrate or free subdiaphragmatic air. Heart is not enlarged. Nipple jewelry is noted. Supine and erect views of the abdomen show clips in the right upper quadrant of the abdomen. Bowel gas pattern is unremarkable. Psoas margins and flank stripes are intact. Impression: Unremarkable acute abdominal series. Electronically Signed by Andres Atkinson MD 04/19/2019 12:55 P
[2019-04-19] MEDS ORDERED: PERC5TAB12 PO (23:35)
== END 2019-04-19 11:11 | disposition home or self-care (01) ==
LOC: M ED 06:53
DX: R10.11 Right upper quadrant pain (principal); R10.9 Unspecified abdominal pain; Z87.442 Personal history of urinary calculi; Z87.19 Personal history of other diseases of the digestive system; Z79.899 Other long term (current) drug therapy; Z91.011 Allergy to milk products; E73.9 Lactose intolerance, unspecified; Z88.7 Allergy status to serum and vaccine